=== PATIENT | female | born 1995 | race African-American/Black ===

== ENCOUNTER 2016-12-10 12:09 | Emergency (ER) | payer SELFPAY ==
[2016-12-10] MEDS ORDERED: ONDANSETRON 4 MG TAB.RAPDIS SL ONE (12:26)
[2016-12-10] MEDS ORDERED: OXYCODONE-ACETAMINOPHEN 5-325 MG TABLET PO ONE (12:26)
--- NOTE | 2016-12-10 12:27 | ER Document Report ---
ED Medical Screen (RME) - General Chief Complaint: Abdominal Pain Stated Complaint: RIGHT SIDE PAIN Time seen by provider: 12:26 Mode of Arrival: Ambulatory Information source: Patient TRAVEL OUTSIDE OF THE [place] IN LAST 30 DAYS: No - HPI Patient complains to provider of: right upper quadrant pain Onset: Yesterday Onset/Duration: Gradual, Persistent Quality of pain: Sharp, Stabbing Severity: Moderate Pain Level: 3 Associated Symptoms: Fever, Nausea, Vomiting Exacerbated by: Food Relieved by: Denies Similar symptoms previously: No Recently seen / treated by doctor: No Notes: 12/10/16 12:27 Patient is a 21-year-old female with no past medical history, no surgical history, who presents to the emergency room complaining of right upper quadrant stabbing pain that's been going on for the past 2 days, with nausea and vomiting this morning as well as a low-grade temp - Related Data Allergies/Adverse Reactions: No Known Allergies Allergy (Verified 12/10/16 12:21) Past Medical History Renal/ Medical History: Denies: Hx Peritoneal Dialysis - Immunizations Immunizations up to date: Yes Hx Diphtheria, Pertussis, Tetanus Vaccination: Yes Physical Exam - Vital signs Vitals: Temp Pulse Resp BP Pulse Ox 99.0 F 88 18 115/64 100 12/10/16 12:21 12/10/16 12:21 12/10/16 12:21 12/10/16 12:21 12/10/16 12:21 Course - Vital Signs Vital signs: Temp Pulse Resp BP Pulse Ox 99.0 F 88 18 115/64 100 12/10/16 12:21 12/10/16 12:21 12/10/16 12:21 12/10/16 12:21 12/10/16 12:21
[2016-12-10 12:59] LABS: ABSOLUTE LYMPHOCYTES (AUTO) 1.8 10^3/uL (0.5-4.7); ABSOLUTE MONOCYTES (AUTO) 0.7 10^3/uL (0.1-1.4); ABSOLUTE NEUT (AUTO) 7.5 10^3/uL (1.7-8.2); BASOPHILS % (AUTO) 0.4 % (0-2); EOSINOPHILS % (AUTO) 0.2 % (0-6); HEMATOCRIT 35.1 % (36.0-47.0); HGB HCT DIFFERENCE 0.9; LYMPHOCYTES % (AUTO) 17.7 % (13-45); MEAN CORPUSCULAR HEMOGLOBIN 29.8 pg (27.0-33.4); MEAN CORPUSCULAR HGB CONC 34.3 g/dL (32.0-36.0); MEAN CORPUSCULAR VOLUME 87 fl (80-97); MONOCYTES % (AUTO) 6.9 % (3-13); RED BLOOD COUNT 4.04 10^6/uL (3.72-5.28); SEGMENTED NEUTROPHILS % (AUTO) 74.8 % (42-78)
[2016-12-10 13:08] LABS: ALANINE AMINOTRANSFERASE 18 U/L (9-52); ALBUMIN 4.1 g/dL (3.5-5.0); ALKALINE PHOSPHATASE 61 U/L (38-126); ANION GAP 10 (5-19); ASPARTATE AMINO TRANSFERASE 17 U/L (14-36); BILIRUBIN,DIRECT 0.2 mg/dL (0.0-0.4); BILIRUBIN,TOTAL 0.5 mg/dL (0.2-1.3); BLOOD UREA NITROGEN 12 mg/dL (7-20); CALCIUM 9.8 mg/dL (8.4-10.2); CARBON DIOXIDE 29 mmol/L (22-30); CHLORIDE 104 mmol/L (98-107); CREATININE RESULT 0.71 mg/dL (0.52-1.25); GLUCOSE 81 mg/dL (75-110); LIPASE 50.5 U/L (23-300); POTASSIUM 4.3 mmol/L (3.6-5.0); SODIUM 142.8 mmol/L (137-145); TOTAL PROTEIN 7.4 g/dL (6.3-8.2)
[2016-12-10 13:25] LABS: AMORPHOUS SEDIMENT,URINE TRACE /HPF; APPEARANCE,URINE CLOUDY; BILIRUBIN,URINE NEGATIVE (NEGATIVE); GLUCOSE, URINE NEGATIVE (NEGATIVE); KETONES,URINE NEGATIVE (NEGATIVE); LEUKOCYTE ESTERASE,URINE TRACE (NEGATIVE); NITRITE,URINE NEGATIVE (NEGATIVE); PROTEIN,URINE NEGATIVE (NEGATIVE); URINE SPECIFIC GRAVITY 1.012; UROBILINOGEN,URINE NEGATIVE mg/dL (<2.0)
--- NOTE | 2016-12-10 15:34 | ER Document Report ---
ED GI/ - General Mode of Arrival: Ambulatory Information source: Patient TRAVEL OUTSIDE OF THE [place] IN LAST 30 DAYS: No - HPI Patient complains to provider of: Abdominal pain - Right upper quadrant Onset: Other - 3 days ago Timing/Duration: Sudden, Persistent Location: RUQ Vaginal bleeding (Compared to normal period): None Associated symptoms: Nausea, Vomiting. denies: Diarrhea, Vaginal discharge <PATTIE COLLIER - Last Filed: 12/10/16 15:48> <ELZA CASTAÑEDA - Last Filed: 12/13/16 05:45> - General Chief Complaint: Abdominal Pain Stated Complaint: RIGHT SIDE PAIN Notes: Patient is a 21-year-old female presenting to the emergency department concerned of right upper quadrant abdominal pain onset approximately 3 days ago while at work. Patient states this is the first time she's felt pain like this. Patient also admits to nausea and vomiting, but denies any diarrhea, pelvic pain, or vaginal discharge. Patient states she was given nausea medication and 1 Percocet while here in the emergency department. Patient also reports that the pain stays in the right upper quadrant, no radiation anywhere else in the abdominal area. Patient states she is not primary care physician on the left. She has seen a doctor for anything was in 2015 when she gave . (PATTIE COLLIER) - Related Data Allergies/Adverse Reactions: No Known Allergies Allergy (Verified 12/10/16 12:21) Past Medical History - General Information source: Patient - Social History Smoking Status: Unknown if Ever Smoked Family History: Reviewed & Not Pertinent Patient has suicidal ideation: No Patient has homicidal ideation: No Renal/ Medical History: Denies: Hx Peritoneal Dialysis - Immunizations Immunizations up to date: Yes Hx Diphtheria, Pertussis, Tetanus Vaccination: Yes <PATTIE COLLIER - Last Filed: 12/10/16 15:48> Review of Systems - Review of Systems Constitutional: No symptoms reported EENT: No symptoms reported Cardiovascular: No symptoms reported Respiratory: No symptoms reported Gastrointestinal: See HPI, Abdominal pain - RUQ, Nausea, Vomiting. denies: Diarrhea Genitourinary: No symptoms reported Female Genitourinary: No symptoms reported. denies: Vaginal discharge Musculoskeletal: No symptoms reported Skin: No symptoms reported Hematologic/Lymphatic: No symptoms reported Neurological/Psychological: No symptoms reported -: Yes All other systems reviewed and negative <PATTIE COLLIER - Last Filed: 12/10/16 15:48> Physical Exam - General General appearance: Appears well, Alert - HEENT Head: Normocephalic, Atraumatic Eyes: Normal Pupils: PERRL - Respiratory Respiratory status: No respiratory distress Chest status: Nontender Breath sounds: Normal Chest palpation: Normal - Cardiovascular Rhythm: Regular Heart sounds: Normal auscultation Murmur: No - Abdominal Inspection: Normal Distension: No distension Bowel sounds: Normal Tenderness: Nontender Organomegaly: No organomegaly - Back Back: Normal, Nontender - Extremities General upper extremity: Normal inspection, Nontender General lower extremity: Normal inspection, Nontender - Neurological Neuro grossly intact: Yes Cognition: Normal Orientation: AAOx4 Francie Coma Scale Eye Opening: Spontaneous Francie Coma Scale Verbal: Oriented Francie Coma Scale Motor: Obeys Commands Francie Coma Scale Total: 15 Speech: Normal - Psychological Associated symptoms: Normal affect, Normal mood - Skin Skin Temperature: Warm Skin Moisture: Dry Skin Color: Normal <LUCRETIA COLLIERICA - Last Filed: 12/10/16 15:48> Course - Laboratory Result Diagrams: 12/10/16 12:45 12/10/16 12:45 <[email or web address] - Last Filed: 12/10/16 15:48> - Laboratory Result Diagrams: 12/10/16 12:45 12/10/16 12:45 <ELZA CASTAÑEDA - Last Filed: 12/13/16 05:45> - Re-evaluation Re-evalutation: 12/10/16 15:35 Patient seen and evaluated for right upper quadrant pain new onset yesterday. On examination she has been seen and given Percocet Zofran. On abdominal examination there is no acute guarding rebound rigidity pulsatile dullness or hernias. Laboratory evaluation is negative ultrasound is negative. Reassessment. Patient is well-appearing nontoxic normal labs negative acute clinical examination for Toradol pathology no reason at this point to order a CT scan. Patient will be given a family doctor for follow-up she is to call today scheduled appointment for follow-up in 1-2 days and specifically discussed reasons for ED return sooner creasing increased pain fever or any other concerns speculative treatment (ELZA CASTAÑEDA) - Vital Signs Vital signs: Temp Pulse Resp BP Pulse Ox 97.7 F 62 16 116/60 100 12/10/16 16:08 12/10/16 16:08 12/10/16 16:08 12/10/16 16:08 12/10/16 16:08 - Laboratory Laboratory results interpreted by me: 12/10/16 12/10/16 12:45 12:45 Hct 35.1 L Urine Blood SMALL H Ur Leukocyte Esterase TRACE H Discharge <PATTIE COLLIER - Last Filed: 12/10/16 15:48> <ELZA CASTAÑEDA - Last Filed: 12/13/16 05:45> - Discharge Clinical Impression: acute abdominal pain Condition: Stable Disposition: HOME, SELF-CARE Instructions: Abdominal Pain ([facility]) Additional Instructions: Abdominal Pain There are many causes of abdominal pain. Pain can mean a serious problem requiring surgery (such as appendicitis). It can also be an innocent problem that goes away on its own (such as a viral infection). Often, time must pass to determine the cause of pain. The physician does not feel that hospitalization is necessary, at present. Things may change within the next 24 hours. Call the doctor or come back for re- examination if any problems occur, such as: (1) Pain that becomes more severe, steady, or becomes concentrated in one specific area. Also, pain that is more severe with movement or coughing. (2) Vomiting that persists or becomes more frequent. (3) Blood in the vomitus, urine, or bowel movements. Blood in the stool may have a tarry or black appearance. (4) Shaking chills or fever greater than 100 degrees F. (5) The abdomen becomes more distended or swollen. (6) Bowel movements cease. (7) Failure to improve as expected. Forms: Return to Work Referrals: SALLY SMITH MD [ACTIVE STAFF] - (Call for an appointment today to be seen in follow-up in 1-2 days return for increasing worsening or new symptoms) Scribe Attestation: 12/10/16 15:35 I personally performed the services described in the documentation reviewed the documentation recorded by my scribe in my presence and it accurately and completely records my words and actions (ELZA CASTAÑEDA) Scribe Documentation - Scribe Written by Scribe:: Pattie Collier 12/10/2016 1533 acting as scribe for :: Dr. Castañeda <NANDO,PATTIE - Last Filed: 12/10/16 15:48>
[2016-12-10 16:10] VITALS: BP 116/60
== END 2016-12-10 16:08 | disposition home or self-care (01) ==
LOC: ER 12:09
DX: R10.11 Right upper quadrant pain (principal); R11.2 Nausea with vomiting, unspecified
CPT/HCPCS: 99284; 36415; 87086; 83690; 84703; 85025; 87088; 80053; 81001; 76705; S0119

== ENCOUNTER → 2019-03-31 | Outpatient (CLI) | payer OTHER ==
[2019-03-31 14:35] LABS: APPEARANCE,URINE CLEAR; BILIRUBIN,URINE NEGATIVE (NEGATIVE); COLOR,URINE YELLOW; GLUCOSE, URINE NEGATIVE (NEGATIVE); KETONES,URINE NEGATIVE (NEGATIVE); LEUKOCYTE ESTERASE,URINE NEGATIVE (NEGATIVE); NITRITE,URINE NEGATIVE (NEGATIVE); PROTEIN,URINE NEGATIVE (NEGATIVE); URINE SPECIFIC GRAVITY 1.026
[2019-03-31 14:44] LABS: ALBUMIN 4.5 g/dL (3.5-5.0); ALKALINE PHOSPHATASE 48 U/L (38-126); ANION GAP 7 (5-19); ASPARTATE AMINO TRANSFERASE 23 U/L (14-36); BILIRUBIN,DIRECT 0.3 mg/dL (0.0-0.4); BILIRUBIN,TOTAL 0.4 mg/dL (0.2-1.3); BLOOD UREA NITROGEN 17 mg/dL (7-20); CALCIUM 9.6 mg/dL (8.4-10.2); CARBON DIOXIDE 27 mmol/L (22-30); CHLORIDE 103 mmol/L (98-107); GLUCOSE 74 mg/dL (75-110); POTASSIUM 4.1 mmol/L (3.6-5.0); TOTAL PROTEIN 7.5 g/dL (6.3-8.2)
[2019-04-01 05:37] LABS: HEPATITS B SURFACE ANTIGEN Negative (Negative)
[2019-04-01 07:03] LABS: HEPATITIS C VIRUS ANTIBODY <0.1 s/co ratio (0.0-0.9)
== END ==
LOC: CCC 13:45
DX: Z00.00 Encounter for general adult medical examination without abnormal findings (principal)
CPT/HCPCS: 36415; 80053; 80074; 81001; 83036; 84443; 86701